=== PATIENT | male | born 1960 | race Caucasian/White ===

== ENCOUNTER 2018-09-18 15:21 | Inpatient (IN) | payer MEDICARE, OTHER ==
[~2018-09-18] VITALS: Ht 180.3 cm; Wt 93.7 kg
[2018-09-18] MEDS ORDERED: NITROGLYCERIN SINGLE TAB 0.4 MG SL PRN (16:00)
[2018-09-18] MEDS ORDERED: ASPIRIN 81 MG TABLET CHEW PO ONE (16:00)
[2018-09-18] MEDS ORDERED: NITROGLYCERIN SINGLE TAB 0.4 MG SL ONE (16:01)
[2018-09-18] MEDS ORDERED: ASPIRIN 81 MG TABLET CHEW ONE (16:01)
--- NOTE | 2018-09-18 16:15 | NUR ---
THIS IS A 58 Y/O MALE THAT ARRIVES TO THE ED C/O OF CHEST PAIN AND EPIGASTRIC PAIN WITH RIGHT ARM NUMBNESS. PT REPORTS THAT THE PAIN IS VERY COLIC IN NATURE AT THIS TIME. PT REPORTS A MTZ WELL. PT DENIES TRUAMA. PT REPORTS THAT HE HAD AN EPISODE OF CHEST PALPITATIONS. PT CONNECTED TO ALL MONITORS AND CALL LIGHT IN REACH. FALL EDUCATION GIVEN AT THIS TIME.
[2018-09-18 16:17] LABS: BASOPHILS # (AUTO) 0.01 x10^3/uL (0-0.1); BASOPHILS % (AUTO) 0 % (0-1); EOSINOPHILS # (AUTO) 0.27 x10^3/uL (0-0.4); EOSINOPHILS % (AUTO) 3 % (1-7); LYMPHOCYTES # (AUTO) 1.71 x10^3/uL (1-3.4); LYMPHOCYTES % (AUTO) 19 % (22-44); MD NO; MEAN CORPUSCULAR HEMOGLOBIN 29.4 pg (27.5-34.5); MEAN CORPUSCULAR HGB CONC 32.5 g/dL (33.2-36.2); MEAN CORPUSCULAR VOLUME 90.6 fL (81-97); MEAN PLATELET VOLUME 8.3 fL (7.4-10.4); MONOCYTES # (AUTO) 0.83 x10^3/uL (0.2-0.8); MONOCYTES % (AUTO) 9 % (2-9); NEUTROPHILS # (AUTO) 6.42 x10^3/uL (1.8-6.8); NEUTROPHILS % (AUTO) 70 % (42-75); PLATELET COUNT 243 x10^3/uL (130-400); RED BLOOD COUNT 5.49 x10^6/uL (4.38-5.82); RED CELL DISTRIBUTION WIDTH 13.9 % (9.4-14.8)
--- NOTE | 2018-09-18 16:19 | NUR ---
pt medicated with nitro and asa for chest pain. pt bp high and md aware.
[2018-09-18 16:20] LABS: ALBUMIN 4.4 g/dL (3.4-5.0); ANION GAP 6 mmol/L (5-15); CALCIUM 9.3 mg/dL (8.5-10.1); CHLORIDE 109 mmol/L (98-107); CREATININE 0.96 mg/dL (0.7-1.3)
[2018-09-18 16:23] LABS: TROPONIN I 0.113 ng/mL (0.000-0.045)
--- NOTE | 2018-09-18 16:51 | NUR ---
MD BERG MADE AWARE OF ELEVATED TROP. PT GIVEN H20 PER MD BERG REQUEST. PT TBADM.
[2018-09-18] MEDS ORDERED: GARL1TAB2 PO (16:57)
[2018-09-18] MEDS ORDERED: LACT1CAP11 PO (16:57)
[2018-09-18] MEDS ORDERED: NAPR500T8 PO (16:57)
[2018-09-18] MEDS ORDERED: LEFL10TA14 PO (16:57)
[2018-09-18] MEDS ORDERED: HEPARIN 25,000 UNITS/500ML PMX 500 ML IV PRN (17:00)
[2018-09-18] MEDS ORDERED: HEPARIN 5,000 UNITS/ML, 1ML IV ONE (17:00)
[2018-09-18] MEDS ORDERED: hydrALAzine 20 MG/ML, 1ML IVPush PRN (17:30)
[2018-09-18] MEDS ORDERED: NITROGLYCERIN 0.4 MG BOTTLE (25 TABS) SL PRN (17:30)
[2018-09-18] MEDS ORDERED: ONDANSETRON 2MG/ML, 2ML IVPush PRN (17:30)
[2018-09-18] MEDS ORDERED: TEMAZEPAM 15 MG CAPSULE PO PRN (17:30)
[2018-09-18] MEDS ORDERED: morphine SULFATE 10 MG/ML, 1ML IVPush PRN (17:30)
--- NOTE | 2018-09-18 17:42 | NUR ---
MD LUNA AND NAVEEN MADE AWARE OF ELEVATED BP. ORDER FOR LOPRESSOR. PT REPORTS THAT HE IS NOT ALLERGIC TO TYLENOL.
[2018-09-18] MEDS ORDERED: METOPROLOL 1 MG/ML, 5ML IVPush ONE (18:00)
[2018-09-18] MEDS ORDERED: HEPARIN 5,000 UNITS/ML, 1ML ONE (18:11)
[2018-09-18] MEDS ORDERED: HEPARIN 25,000 UNITS/500ML PMX 500 ML ONE (18:11)
[2018-09-18] MEDS ORDERED: METOPROLOL 1 MG/ML, 5ML ONE (18:12)
--- NOTE | 2018-09-18 18:35 | NUR ---
HEPARIN STARTED AND SECOND PIV.
[2018-09-18 21:07] VITALS: BP 149/110
[2018-09-18 21:08] VITALS: BP 155/103
[2018-09-18] MEDS: METOPROLOL TARTRATE 25 MG TABLET PO SCH (21:10)
[2018-09-18 21:16] VITALS: BP 179/108
[2018-09-18 22:33] LABS: TROPONIN I 0.127 ng/mL (0.000-0.045)
[2018-09-19] VITALS (7 sets, daily range): BP systolic 88–162; BP diastolic 63–107
[2018-09-19 04:30] LABS: CHOLESTEROL, TOTAL 206 mg/dL (140-239); TRIGLYCERIDES 104 mg/dL (50-200); VLDL CHOLESTEROL 21 mg/dL (0-25)
[2018-09-19 04:33] LABS: CHOL/HDL RATIO 4.2; HDL CHOL % 24 % (26-37); HDL CHOLESTEROL (DIRECT) 49 mg/dL (40-60); LDL CHOLESTEROL,CALCULATED 136 mg/dL (54-169); LDL/HDL RATIO 2.8 (0.5-3.0); TROPONIN I 0.118 ng/mL (0.000-0.045)
[2018-09-19] MEDS: HEPARIN 5,000 UNITS/ML, 1ML IV PRN ×2 (04:33→12:32)
[2018-09-19] MEDS: METOPROLOL TARTRATE 25 MG TABLET PO SCH ×3 (05:34→21:57)
[2018-09-19] MEDS ORDERED: SODIUM CHLORIDE 0.9% 1,000 ML IV SCH ×2 (11:00→14:37)
[2018-09-19] MEDS: FAMOTIDINE 20 MG TABLET PO SCH ×2 (13:13→20:13)
[2018-09-19] MEDS: DIPHENHYDRAMINE 50 MG CAPSULE PO SCH ×3 (13:13→20:13)
[2018-09-19] MEDS ORDERED: DIPHENHYDRAMINE 50 MG/ML, 1ML ONE (13:25)
[2018-09-19] MEDS ORDERED: methylPREDNISolone SOD SUCC 125 MG/2 ML ONE (13:25)
[2018-09-19] MEDS ORDERED: FENTANYL PF 100 MCG/2ML ONE (13:35)
[2018-09-19] MEDS ORDERED: TICAGRELOR 90 MG TABLET ONE (13:35)
[2018-09-19] MEDS ORDERED: MIDAZOLAM 1 MG/ML, 5ML ONE (13:35)
[2018-09-19] MEDS ORDERED: BIVALIRUDIN 250 MG ONE (13:36)
[2018-09-19] MEDS ORDERED: LIDOCAINE 2%, 20ML ONE (13:36)
[2018-09-19] MEDS ORDERED: HEPARIN 1,000 UNITS/ML, 10ML ONE (13:36)
[2018-09-19] MEDS ORDERED: VERAPAMIL 2.5 MG/ML, 2ML ONE (13:36)
[2018-09-19] MEDS: LOSARTAN 25MG TABLET PO SCH (20:14)
[2018-09-19] MEDS: TICAGRELOR 90 MG TABLET PO SCH (20:14)
[2018-09-20 01:32] VITALS: BP 147/87
[2018-09-20 05:56] LABS: ANION GAP 7 mmol/L (5-15); CALCIUM 8.6 mg/dL (8.5-10.1); CHLORIDE 109 mmol/L (98-107)
[2018-09-20 06:04] VITALS: BP 122/81
[2018-09-20] MEDS: METOPROLOL TARTRATE 25 MG TABLET PO SCH (06:05)
[2018-09-20 07:00] VITALS: BP 115/71
[2018-09-20] MEDS ORDERED: ASPIRIN 81 MG TABLET EC PO SCH (09:00)
[2018-09-20 09:17] VITALS: BP 136/78
[2018-09-20] MEDS: LOSARTAN 25MG TABLET PO SCH (09:18)
[2018-09-20] MEDS: TICAGRELOR 90 MG TABLET PO SCH (09:18)
[2018-09-20] MEDS ORDERED: NITR0.4T41 SL (10:08)
[2018-09-20] MEDS ORDERED: TICA90TA PO (10:08)
[2018-09-20] MEDS ORDERED: LOSA25TA25 PO (10:08)
[2018-09-20] MEDS ORDERED: METO-93 PO (10:08)
[2018-09-20] MEDS ORDERED: ASPI81TA45 PO (10:08)
[2018-09-20] MEDS ORDERED: ATOR80TA PO (10:42)
[2018-09-20] MEDS ORDERED: METO50TA82 PO (11:48)
[2018-09-20] MEDS ORDERED: METOPROLOL TARTRATE 25 MG TABLET PO SCH (21:00)
== END 2018-09-20 12:30 | disposition home or self-care (01) | DRG 247 ==
LOC: ED 16:47 → SUATTDRO 16:57 → EDIP 17:22 → ED 17:27 → 5SO 19:02 → DCLOUNGE 09-20 12:15
PROVIDERS: ADMIT Internal Medicine; ATTEND Internal Medicine
PROC: 027034Z Dilation of Coronary Artery, One Artery with Drug-eluting Intraluminal Device, Percutaneous Approach (ICD-10-PCS; principal; 2018-09-19)
PROC: 4A023N7 Measurement of Cardiac Sampling and Pressure, Left Heart, Percutaneous Approach (ICD-10-PCS; 2018-09-19)
PROC: B2111ZZ Fluoroscopy of Multiple Coronary Arteries using Low Osmolar Contrast (ICD-10-PCS; 2018-09-19)
PROC: B2151ZZ Fluoroscopy of Left Heart using Low Osmolar Contrast (ICD-10-PCS; 2018-09-19)
DX: I21.4 Non-ST elevation (NSTEMI) myocardial infarction (principal); I10 Essential (primary) hypertension; F17.200 Nicotine dependence, unspecified, uncomplicated; Z88.8 Allergy status to other drugs, medicaments and biological substances; Z91.041 Radiographic dye allergy status; E78.5 Hyperlipidemia, unspecified; M06.9 Rheumatoid arthritis, unspecified; Z82.49 Family history of ischemic heart disease and other diseases of the circulatory system; Z85.21 Personal history of malignant neoplasm of larynx; Z85.89 Personal history of malignant neoplasm of other organs and systems; Z95.5 Presence of coronary angioplasty implant and graft
CPT/HCPCS: 36415; 71045; 80048; 80061; 82040; 84484; 85014; 85018; 85025; 85520; 93005; 93458; 96374; 99156; 99157; 99291; C1769; C1894; C9600; G0378; J0583; J1644; J2250; J3010; C1725; C1874; C1887; J0360; J1200; J2930; J7030; J7512; Q9967